=== PATIENT | female | born 2000 | race Caucasian/White ===

== ENCOUNTER → 2022-10-24 | Outpatient (CLI) | payer BC ==
[~2022-10-24] MED LIST: IBU800 M1 PO; LOVENOX 4040 MG/0.4 SQ; PRENATAL
--- NOTE | 2022-10-24 14:30 | NUR ---
Pt, Lucila Ga, presents to walk-in clinic with 4 wk old baby girl, Kisha Ga for a evaluation. Kisha is s/p tongue tie release x7 days. Pt states she still has some soreness and Kisha doesn't always keep a good latch. Kisha was born on [birth year] and weighed 7# 6.9oz (3371 gms). One week ago she weighed 7# 15.1oz (3603 gms). Pt states Kisha's feeding pattern is off today, she seems to be having smaller, more frequent feedings. She also has this in the evening times as well. Today Kisha weighs 8# 4oz (3742 gms). She had a gain of 4.9oz over the last 7 days. The frenulum releases appear to be healing well and she has good tongue lift. LC does not observe any breakdown of the nipple tissue and once Kisha is latched her tongue is visable across the gum line, grasping the breast. After today Kisha has a gain of 3.5oz (100 gms). She did not seem to have trouble staying latched at this feeding, discussed pt's support at home, she thinks this pillow may be better than the one she has at home. Discussed ways to improve support under Kisha. Pt states she is pumping occassionally and this causes an increase of nipple discomfort. Pt is advised to decrease her breastpump flange size some more. Kisha has not been receptive to the bottle yet and is also rejecting pacifiers. POC: Continue BF ad cory, may let her sleep upto 5 hours a night. F/U: Kisha has an appt with Dr. Lauren tomorrow and next week. F/U at clinic as desired. Questions invited and answered.
== END ==
LOC: LAC 11:51
DX: Z39.1 Encounter for care and examination of lactating mother (principal); Z71.89 Other specified counseling